=== PATIENT | female | born 2000 | race Two or more races ===

== ENCOUNTER 2022-09-08 12:56 | Emergency (ER) | payer OTHER ==
[~2022-09-08] VITALS: Ht 165.1 cm; Wt 108.9 kg
== END 2022-09-08 20:38 | disposition home or self-care (01) ==
LOC: ER 12:56
DX: O26.892 Other specified pregnancy related conditions, second trimester (principal); Z3A.27 27 weeks gestation of pregnancy; R50.9 Fever, unspecified; R19.7 Diarrhea, unspecified; Z88.9 Allergy status to unspecified drugs, medicaments and biological substances

== ENCOUNTER 2022-12-06 21:23 | Inpatient (IN) | payer OTHER ==
[~2022-12-06] VITALS: Ht 165.1 cm; Wt 119.7 kg
[2022-12-13] MEDS ORDERED: TRAMADOL HCL50 MG PO (10:30)
== END 2022-12-13 12:33 | disposition home or self-care (01) | DRG 788 ==
LOC: OBS/DEL 21:23 → OB/GYN 12-07 09:07 → LDR 12-07 09:07 → OB/GYN 12-07 12:44
PROVIDERS: Obstetrics & Gynecology; ADMIT Student in an Organized Health Care Education/Training Program; ATTEND Student in an Organized Health Care Education/Training Program
PROC: 4A1HXCZ Monitoring of Products of Conception, Cardiac Rate, External Approach (ICD-10-PCS; 2022-12-07)
PROC: 10D00Z1 Extraction of Products of Conception, Low, Open Approach (ICD-10-PCS; principal; 2022-12-10 14:00)
DX: O14.04 Mild to moderate pre-eclampsia, complicating childbirth (principal); Z3A.39 39 weeks gestation of pregnancy; Z37.0 Single live birth